=== PATIENT | male | born 2000 | race Caucasian/White ===

== ENCOUNTER 2024-01-14 12:51 | Emergency (ER) | payer BC, SELFPAY ==
[2024-01-14 12:55] VITALS: BP 158/89
[2024-01-14 13:42] VITALS: BMI 40.1
--- NOTE | 2024-01-14 13:45 | EDRN ---
Wet saline dressing place to base of L toe.
--- NOTE | 2024-01-14 14:13 | EDRN ---
Weston QURESHI in room w/pt at this time.
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
--- NOTE | 2024-01-14 14:19 | ED.GENMED ---
History of Present Illness
General
Chief Complaint: Skin Surface Trauma
Source: patient
Exam Limitations: none
Time Seen by Provider: 01/14/24 13:44
Nursing documentation reviewed up to this point in time: agreed with
History of Present Illness
History of Present Illness:
pt is a 23 y/o M with no sig pmh
here with L dorsum foot laceration when he dropped a piece of furniture on his foot today
pt has a significant laceration to dorsum of L foot 1st MTP region
bleeding controlled
no numbness/tingling/weakness
tetanus believed to be UTD
Past History
Past History
ED Past Medical History: None
ED Past Surgical History: None
Social History
Tobacco: Non-smoker
Alcohol: None
Drug: None
Personal: Single
Living: with family
Employment: Student
Review of Systems
Review of Systems
Allergies reviewed?: Yes
All Other Systems: Not applicable
Phy Exam
Physical Exam
Physical Exam:
GENERAL: Alert , in no apparent distress, comfortable at rest
HEAD: NCAT
CV: 2+ DP PULSES B/L
NEUROLOGICAL: Alert and oriented, no focal neuro deficits, , 5/5 strength, sensation intact, ambulation slight limp right leg
SKIN: Warm and dry, laceration to dorsum of foot; no active bleeding
MUSCULOSKELETAL: irregular laceration to L foot dorsum
no obvious exposed bone or tendon
pt has pain with dorsi and plantar flexion of the 1st MTP joint
able to range 15 degrees
normal sensation
cap refill intact
PSYCH: Normal and appropriate interaction.
Course
Orders/Labs/Results
Orders:
Orders
01/14/24 12:55
Foot, Left 3 View [CR Foot - Left Min 3 Views] Urgent
Comment:
Reason For Exam: trauma
01/14/24 14:20
Ibuprofen [Motrin] 800 mg PO NOW STA
01/14/24 14:35
Tetanus/Diphth/Acelpertussis [Adacel] 0.5 ml IM .ONCE ONE
Vital Signs
Initial and Last Documented VS:
Initial Vital Signs
Temp Pulse Resp BP Pulse Ox
98.7 F 110 18 158/89 96
01/14/24 12:55 01/14/24 12:55 01/14/24 12:55 01/14/24 12:55 01/14/24 12:55
Last Documented Vital Signs
Temp Pulse Resp BP Pulse Ox
98.7 F 83 16 126/84 97
01/14/24 12:55 01/14/24 14:35 01/14/24 14:35 01/14/24 14:35 01/14/24 14:35
Procedures
Laceration Closure
Left Dorsal Foot:
Status of Wound: clean
Size of Wound in cm: 6
Description of Wound Edges: sharp
Preparation: cleaned with saline
Anesthesia: 1% Lidocaine
Revision/Debridement: minor revision and irrigate-direct pressure
Wound exploration: explored to base- no FB and no tendon involvement
Type of Closure: layered closure
Skin Closure Material: 5-0 nylon and 4-0 prolene
Number of sutures: 12
MDM/Problems Addressed
Differential Diagnosis Includes:
laceration, fracture foot
MDM/Problems Addressed:
23 y/o M L foot laceration from a heavy piece of furniture on his foot
bleeding controlled
does not appear ot have functional or sensory deficits
laceration does not involve tendon
xray indep reviewed no fracture
will repair
wound well approximated
bleeding controlled
cap refill intact
hard sole sohe and crutches to avoid flexion at the joint
*Critical Care Note
Total Time (30-74mins, 75-104mins- exclusive of procedures): Not Applicable
ED Attending Note
-
Portions of this chart may have been created with voice recognition software.� Occasional wrong word or��sound alike� substitutions may have occurred due to the inherent limitations of voice recognition software.
Discharge Plan
Departure
Patient Disposition: Home (Routine Discharge)
Date of Disposition: 01/14/24
Time of Disposition: 15:26
Patient with high blood pressure during this ER visit?: No
Condition: Fair
Covid-19: Not Applicable
Discharge Problem:
Laceration of dorsum of left foot
Instructions: Laceration Repair With Stitches (DC)
Referrals:
Jamar Brar, [Family Provider] - Follow up in 2-3 days
Zach Gabriel DPM [Active] - Follow up in 1 week (podiatry)
Activity Restrictions/Additional Instructions:
KEEP THE WOUND CLEAN AND DRY FOR 24 HOURS
AFTER THAT YOU CAN GET IT WET IN THE BATH/SHOWER ONCE A DAY AND MAKE SURE IT IS CLEAN AND THERE IS NO DRIED BLOOD ON THE STITCHES
APPLY NEOSPORIN AND A DRESSING
USE THE HARD SOLED SHOE WHEN YOU WALK, AND TRY USING THE CRUTCHES FOR A FEW DAYS TO STAY OFF OF IT FOR 2-3 DAYS MUCH POSSIBLE SO THE STITCHES DO NOT POP OUT
THE STITCHES NEED TO BE REMOVED IN ABOUT 7-10 DAYS, SEE YOUR DOCTOR FOR THIS.
THE LAST DAY BEFORE STITCHES OUT, NO OINTMENT, LEAVE OPEN TO AIR
FOLLOW UPW ITH PODIATRY NEEDED
WATCH FOR SIGNS OF INFECTION AND RETURN NEEDED FOR PAIN, SWELLING, REDNESS, DRAINAGE, BLEEDING.
MOTRIN NEEDED FOR PAIN.
Interventions
Interventions:
*Risk Screen - Suicide Last Done: 01/14/24 13:42
*General Assessment Last Done: 01/14/24 13:42
*Neglect/Abuse Screening Last Done: 01/14/24 13:42
ED- Fall Risk Assessment Last Done: 01/14/24 15:51
*ED COVID-19 Vaccine History Last Done: 01/14/24 12:55
*Nursing Disposition Last Done: 01/14/24 15:51
ED-Skin Assessment Last Done: 01/14/24 13:42
Discharge Date and Time
Discharge Date/Time: 01/14/24 15:52
Print Language: PUERTO RICAN
[2024-01-14] MEDS: MOTRIN 800 MG PO (14:31)
[2024-01-14 14:35] VITALS: BP 126/84
--- NOTE | 2024-01-14 14:36 | EDRN ---
Weston QURESHI TT'd w/ info from pt as to last Tdap 2004 and no order placed for Tdap.
[2024-01-14] MEDS: ADACEL 0.5 ML IM (14:59)
== END 2024-01-14 15:52 | disposition home or self-care (01) ==
LOC: EMR 12:51
PROVIDERS: EMERGENCY PHYSICIAN Emergency Medicine; FAMILY PHYSICIAN Internal Medicine
DX: S91.312A Laceration without foreign body, left foot, initial encounter (principal); W20.8XXA Other cause of strike by thrown, projected or falling object, initial encounter; Z23 Encounter for immunization
CPT/HCPCS: 99283; 12002; 90471; 73630; 90715